=== PATIENT | male | born 1980 | race African-American/Black ===

== ENCOUNTER 2023-10-21 23:03 | Emergency (ER) | payer SELFPAY ==
[~2023-10-21] VITALS: Ht 170.2 cm; Wt 68.2 kg
[2023-10-21 23:14] VITALS: BP 111/64; TEMP 98.6
[2023-10-22] MEDS ORDERED: TESSALON P100 MG/CAP PO (02:03)
[2023-10-22] MEDS ORDERED: BROMFED DM COU118 ML PO (02:03)
[2023-10-22] MEDS ORDERED: AFRIN 15 ML15 ML NS (02:03)
[2023-10-22 02:11] VITALS: PULSE 74
== END 2023-10-22 02:11 | disposition home or self-care (01) ==
LOC: COL.ER 23:03
DX: J06.9 Acute upper respiratory infection, unspecified (principal)